=== PATIENT | female | born 1975 | race Caucasian/White ===

== ENCOUNTER 2018-02-09 01:21 | Emergency (ER) | payer BC, MEDICAID, OTHER ==
[2018-02-09] MEDS ORDERED: ASPIRIN 81 MG TABLET, CHEWABLE PO ONE (02:20)
[2018-02-09] MEDS ORDERED: METOCLOPRAMIDE HCL ORAL SOLN 10 MG/10 ML UDCUP PO ONE (02:23)
[2018-02-09] MEDS ORDERED: MAG HYDROX/AL HYDROX/SIMETH SUSP 30 ML UDCUP PO ONE (02:23)
[2018-02-09] MEDS ORDERED: LIDOCAINE 2% VISCOUS SOLN 20 ML UDCUP PO ONE (02:23)
--- NOTE | 2018-02-09 02:29 | ER Document Report ---
ED General - General Mode of Arrival: Ambulatory Information source: Patient TRAVEL OUTSIDE OF THE [place] IN LAST 30 DAYS: No <OXANA OZUNA - Last Filed: 02/09/18 02:20> <JULIETTE OTERO - Last Filed: 02/09/18 04:24> - General Chief Complaint: Chest Pain Stated Complaint: UPPER BODY PAIN Time Seen by Provider: 02/09/18 02:10 Notes: 42-year-old female who presents to the emergency department today with complaints of a "burning in her chest" which began at around midnight tonight. Patient states yesterday she was seen by her PCP for generalized body aches and flu-like symptoms but was negative for the flu. Patient states that she does not have a history of acid reflux however she did eat spaghetti for dinner this evening. Patient denies a family or personal history of cardiac disease, PE/DVT , diabetes, or pancreatitis. Patient denies any shortness of breath, diaphoresis, nausea, or radiation of her pain. (OXANA OZUNA) Past Medical History - General Information source: Patient - Social History Smoking Status: Never Smoker Cigarette use (# per day): No Frequency of alcohol use: None Drug Abuse: None Lives with: Family Family History: Reviewed & Not Pertinent Past Surgical History: Reports: Other - Right leg varicosity surgery, left atrial defect corrected at 21 years old <OXANA OZUNA - Last Filed: 02/09/18 02:20> Review of Systems - Review of Systems Constitutional: denies: Diaphoresis EENT: No symptoms reported Cardiovascular: No symptoms reported Respiratory: denies: Short of breath Gastrointestinal: See HPI, Other - chest "burning". denies: Nausea Genitourinary: No symptoms reported Female Genitourinary: No symptoms reported Musculoskeletal: No symptoms reported Skin: No symptoms reported Hematologic/Lymphatic: No symptoms reported Neurological/Psychological: No symptoms reported -: Yes All other systems reviewed and negative <OXANA OZUNA - Last Filed: 02/09/18 02:20> Physical Exam <OXANA OZUNA - Last Filed: 02/09/18 02:20> <JULIETTE OTERO - Last Filed: 02/09/18 04:24> - Vital signs Vitals: Temp Pulse Resp BP Pulse Ox 97.6 F 66 16 138/100 H 100 02/09/18 01:32 02/09/18 01:32 02/09/18 01:32 02/09/18 01:32 02/09/18 01:32 - Notes Notes: PHYSICAL EXAM GENERAL: Alert, interacts well. No acute distress. HEAD: Normocephalic, atraumatic. EYES: Pupils equal, round, and reactive to light. Extraocular movements intact. ENT: Oral mucosa moist, tongue midline. NECK: Full range of motion. Supple. Trachea midline. LUNGS: Clear to auscultation bilaterally, no wheezes, rales, or rhonchi. No respiratory distress. HEART: Regular rate and rhythm. No murmurs, gallops, or rubs. ABDOMEN: Soft, non-tender. Non-distended. Bowel sounds present in all 4 quadrants. No guarding, rigidity, or rebound. EXTREMITIES: Moves all 4 extremities spontaneously. No edema, radial and dorsalis pedis pulses 2/4 bilaterally. No cyanosis. NEUROLOGICAL: Alert and oriented x3. Normal speech. PSYCH: Normal affect, normal mood. SKIN: Warm, dry, normal turgor. No rashes or lesions noted. (OXANA OZUNA) Course <OXANA OZUNA - Last Filed: 02/09/18 02:20> - Laboratory Result Diagrams: 02/09/18 02:56 02/09/18 02:56 <JULIETTE OTERO - Last Filed: 02/09/18 04:24> - Re-evaluation Re-evalutation: 02/09/18 04:20 CBC unremarkable, CMP unremarkable, only slightly elevated glucose at 121 and this was nonfasting, lipase normal, cardiac enzymes negative, chest x-ray unremarkable, EKG is nonischemic. Pain has resolved after GI cocktail. Patient is instructed to take Zantac 75 mg twice a day for the next 2 weeks and follow-up with her primary care physician after that. Discharged home. (JULIETTE OTERO) - Vital Signs Vital signs: Temp Pulse Resp BP Pulse Ox 97.6 F 66 16 138/100 H 100 02/09/18 01:32 02/09/18 01:32 02/09/18 01:32 02/09/18 01:32 02/09/18 02:30 - Laboratory Laboratory results interpreted by me: 02/09/18 02:56 Glucose 121 H - EKG Interpretation by Me Additional EKG results interpreted by me: 02/09/18 04:22 EKG shows sinus rhythm at a rate of 67, first-degree AV block with NM interval of 224, normal axis, no ST segment elevations or depressions, nonspecific T wave inversions in aVL and V2 per my interpretation. (JULIETTE OTERO) Discharge <OXANA OZUNA - Last Filed: 02/09/18 02:20> <JULIETTE OTERO - Last Filed: 02/09/18 04:24> - Discharge Clinical Impression: GERD (gastroesophageal reflux disease) Qualifiers: Esophagitis presence: esophagitis presence not specified Qualified Code(s): K21.9 - Gastro-esophageal reflux disease without esophagitis Condition: Stable Disposition: HOME, SELF-CARE Additional Instructions: I did not find any evidence of a heart attack today. Your chest pain appears to be coming from acid reflux. Please take Zantac or generic equivalent 75 mg twice a day for the next 2 weeks. Should your pain worsen, should she develop shortness of breath or any new or concerning symptoms please return to the emergency department. Prescriptions: Ranitidine HCl [Zantac 75 mg Tablet] 75 mg PO BID #30 tablet Referrals: AYE ROJO DO [NO LOCAL MD] - Follow up as needed Scribe Attestation: 02/09/18 04:24 I personally performed the services described in the documentation, reviewed and edited the documentation which was dictated to the scribe in my presence, and it accurately records my words and actions. (JULIETTE OTERO) Scribe Documentation - Scribe Written by Amado:: Amado Montez, 02/09/2018 [id number] acting as scribe for :: Nicole <OXANA OZUNA - Last Filed: 02/09/18 02:20>
[2018-02-09 03:11] LABS: ABSOLUTE EOSINOPHILS # (AUTO) 0.1 10^3/uL (0.0-0.6); ABSOLUTE LYMPHOCYTES (AUTO) 1.7 10^3/uL (0.5-4.7); ABSOLUTE MONOCYTES (AUTO) 0.4 10^3/uL (0.1-1.4); ABSOLUTE NEUT (AUTO) 3.7 10^3/uL (1.7-8.2); BASOPHILS % (AUTO) 0.8 % (0-2); EOSINOPHILS % (AUTO) 1.6 % (0-6); HEMATOCRIT 40.2 % (36.0-47.0); HEMOGLOBIN 14.1 g/dL (12.0-15.5); LYMPHOCYTES % (AUTO) 28.5 % (13-45); MEAN CORPUSCULAR HEMOGLOBIN 31.1 pg (27.0-33.4); MEAN CORPUSCULAR HGB CONC 34.9 g/dL (32.0-36.0); MEAN CORPUSCULAR VOLUME 89 fl (80-97); MONOCYTES % (AUTO) 6.4 % (3-13); PLATELET COUNT 255 10^3/uL (150-450); RED BLOOD COUNT 4.51 10^6/uL (3.72-5.28); RED CELL DISTRIBUTION WIDTH 12.9 % (11.5-14.0); SEGMENTED NEUTROPHILS % (AUTO) 62.7 % (42-78); TOTAL CELLS COUNTED % (AUTO) 100 %; WHITE BLOOD COUNT 5.9 10^3/uL (4.0-10.5)
[2018-02-09 03:23] LABS: ALANINE AMINOTRANSFERASE 21 U/L (9-52); ALBUMIN 4.3 g/dL (3.5-5.0); ALKALINE PHOSPHATASE 60 U/L (38-126); ANION GAP 10 (5-19); ASPARTATE AMINO TRANSFERASE 20 U/L (14-36); BILIRUBIN,DIRECT 0.3 mg/dL (0.0-0.4); BILIRUBIN,TOTAL 0.5 mg/dL (0.2-1.3); BLOOD UREA NITROGEN 19 mg/dL (7-20); CARBON DIOXIDE 30 mmol/L (22-30); CHLORIDE 105 mmol/L (98-107); CREATINE KINASE 72 U/L (30-135); GLUCOSE 121 mg/dL (75-110); LIPASE 91.6 U/L (23-300); POTASSIUM 4.2 mmol/L (3.6-5.0); SODIUM 144.5 mmol/L (137-145)
[2018-02-09 03:36] LABS: CREATINE KINASE MB 1.11 ng/mL (<4.55)
[2018-02-09 03:41] LABS: TROPONIN I < 0.012 ng/mL
--- NOTE | 2018-02-09 03:54 | RADIOLOGY REPORT (SQ) ---
EXAM DESCRIPTION: XR CHEST 1 VIEW COMPLETED DATE/TME: 02/09/2018 02:20 CLINICAL HISTORY: 42 years, Female, chest pain COMPARISON: None. NUMBER OF VIEWS: One TECHNIQUE: AP view the chest LIMITATIONS: None. FINDINGS: Lungs are clear. There is a calcified granuloma along the right lung base. The heart is normal in size. There is no pneumothorax or pleural effusion. Median sternotomy wires are noted. IMPRESSION: No acute cardiopulmonary abnormality copyright 2010 [employer]- All Rights Reserved
[2018-02-09 05:05] VITALS: BP 124/76
--- NOTE | 2018-02-09 09:41 | EKG REPORT ---
SEVERITY:- ABNORMAL ECG - SINUS RHYTHM FIRST DEGREE AV BLOCK CONSIDER RIGHT VENTRICULAR HYPERTROPHY : Confirmed by: Gloria Barber 09-Feb-2018 09:40:38
== END 2018-02-09 05:10 | disposition home or self-care (01) ==
LOC: ER 01:21
DX: K21.9 Gastro-esophageal reflux disease without esophagitis (principal); R07.9 Chest pain, unspecified; M79.10 Myalgia, unspecified site
CPT/HCPCS: 93005; 99285; 36415; 82553; 82550; 83690; 85025; 80053; 84484; 71045; 93010; J3490